=== PATIENT | female | born 1975 | race Caucasian/White ===

== ENCOUNTER → 2019-02-05 12:23 | Outpatient (RCR) | payer OTHER, SELFPAY ==
--- NOTE | 2018-01-30 14:30 | PT.OIE ---
Current Diagnoses Other chronic pain (01/30/18) Dorsalgia, unspecified (01/30/18) Muscle weakness (generalized) (01/30/18) Provider Visit Care Team Role Provider Type Roman Rene MD Attending Provider Non-Staff Family Provider Primary Care Provider Specialty: Internal Medicine Address: [place], [address] Email: Physical Therapy Initial Evaluation PT-OP-A Visit Information Start: 02/02/18 16:24 Freq: Status: Active Protocol: Document 01/30/18 14:30 RCC (Rec: 02/02/18 16:56 RCC [email or web address]) Out-Patient Physical Therapy Visit Information Visit Information Visit Type Initial Evaluation Visit Start Time 13:45 Visit Stop Time 14:30 Total Visit Minutes 45 Visit Number 1 Number of OXYGEN THERAPIST Visits 0 Evaluation Information Evaluation Date 01/30/18 PT-OP-B Current Condition Start: 02/02/18 16:24 Freq: Status: Active Protocol: Document 01/30/18 14:30 RCC (Rec: 02/02/18 16:56 RCC [email or web address]) Current Condition History of Current Condition Onset Date 2 yrs ago Current Complaints upper and lower back pain History of Current Condition Pt is a 42 y/o female presenting to physical therapy with a c/o chronic upper and lower back pain, with worsening symptoms over the past year. Initially, pt had a possible displaced rib with sternal and upper back pain 2 years ago, which helped with chiropractic treatment. However, pain has worsened over the past year and has tried chiropractic again which has held no long-term results . 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 Pain is worse at night, which interrupts her sleep tremendously, unable to sleep on her back or sides for very long. Pain also early in the morning remains until she gets moving about her day. She feels overall weakness in her core, and is interested in getting exercises to assist with stabilization to hopefully help decrease her pain. Treatment Goals Patient/Caregiver Goals improve strength, decrease pain. Be on a normal workout regimen again. Prior Functional Status Baseline Function- ADL's Independent Baseline Function- Mobility Independent Baseline Function- Gait no issues Baseline Function- Recreation/Hobbies exercising 3-4 days per week, pilates. Current Functional Impairments (Reported) Functional Limitations- Recreation/ increased pain with pilates Hobbies and exercise overall. PT-OP-C Subjective Start: 02/02/18 16:24 Freq: Status: Active Protocol: Document 01/30/18 14:30 RCC (Rec: 02/02/18 16:56 RCC [email or web address]) Patient Questionnaires Oswestry Low Back Index Oswestry Score 20 OP-PT Pain Assessment Location Lower Back Intensity 2 Scale Used Numeric (1 - 10) Frequency Occasional Upper Back Intensity 6 Scale Used Numeric (1 - 10) Description Aching Description- Other when sleeping and early a.m. PT-OP-F Manual Assessment Start: 02/02/18 16:24 Freq: Status: Active Protocol: Document 01/30/18 14:30 RCC (Rec: 02/02/18 16:56 RCC [email or web address]) Manual Assessments Soft Tissue Assessment Soft Tissue Mobility Assessment (2) tenderness to palpation: bilateral rhomboids, upper trapezius, latissimus dorsi, parascapular mm, lumbosacral multifidi and ES. Joint Mobility Assessment Joint Mobility Assessment hypermobility @ L3-5, hypomobile in the thoracic spine. PT-OP-H Neuro Start: 02/02/18 16:24 Freq: Status: Active Protocol: Document 01/30/18 14:30 RCC (Rec: 02/02/18 16:56 RCC [email or web address]) Deep Tendon Reflex & Clonus Assessment Deep Tendon Reflex Bilateral Patellar Deep Tendon Reflex 1+ Diminished Bilateral Achilles Deep Tendon Reflex 1+ Diminished PT-OP-J Posture/Palpation/Skin Start: 02/02/18 16:24 Freq: Status: Active Protocol: Document 01/30/18 14:30 RCC (Rec: 02/02/18 16:56 RCC [email or web address]) Posture Evaluation Position Sitting Evaluation View Lateral Head/C-Spine Posture Forward Head T-Spine Posture Increased Kyphosis Shoulder Posture (L) Rounded (R) Rounded Scapula Posture (L) Protracted (R) Protracted Pelvis Posture Anteriorly Tilted Knee Posture (L) Genu Recurvatum (R) Genu Recurvatum PT-OP-K Range of Motion Start: 02/02/18 16:24 Freq: Status: Active Protocol: Document 01/30/18 14:30 RCC (Rec: 02/02/18 16:56 [facility] [email or web address]) Lumbar Spine Range of Motion Lumbar Spine Active Degrees Testing Position standing Flexion 110 Extension 30 Comments SB 2 greater to the L than the R, with tension on contralateral side. Shoulder Goniometric Range of Motion Shoulder Measured in Degrees Right Active Shoulder ROM WFL Yes Left Active Shoulder ROM WFL Yes PT-OP-L Special Tests Start: 02/02/18 16:24 Freq: Status: Active Protocol: Document 01/30/18 14:30 RCC (Rec: 02/02/18 16:56 [facility] [email or web address]) Special Tests Lumbar Spine Special Tests Vertical Spine Loading Test Results negative Straight Leg Raise Test Results negative bilateral Slump Test Results positive bilateral Comments sciatic Prone Instability Test Test Results positive L3, L4, L5 PT-OP-M Strength Start: 02/02/18 16:24 Freq: Status: Active Protocol: Document 01/30/18 14:30 RCC (Rec: 02/02/18 16:56 [facility] [email or web address]) Hip Strength Hip Manual Muscle Testing Right Flexion (L2) 4 Good Abduction 4 Good Adduction 5 Normal External Rotation 4- Good- Internal Rotation 3+ Fair+ Left Flexion (L2) 4+ Good+ Abduction 4 Good Adduction 5 Normal External Rotation 4- Good- Internal Rotation 4- Good- Knee Strength Knee Manual Muscle Testing Right Flexion (S2) 5 Normal Extension (L3) 5 Normal Left Flexion (S2) 4+ Good+ Extension (L3) 5 Normal PT-OP-Q Treatments Start: 02/02/18 16:24 Freq: Status: Active Protocol: Document 01/30/18 14:30 RCC (Rec: 02/02/18 16:56 [facility] [email or web address]) Therapeutic Exercises Supine Exercises 1 Supine Exercise Name transverse abdominal activation Side bilateral Reps/Minutes 10 each Comments static and short walk outs Other Exercises 2 Other Exercise Name child's pose and bias to each side Side bilateral 1 Other Exercise Name quadruped alternating LE lift Side bilateral Reps/Minutes 10 PT-OP-T Assessment and Plan Start: 02/02/18 16:24 Freq: Status: Active Protocol: Document 01/30/18 14:30 RCC (Rec: 02/02/18 16:56 [facility] [email or web address]) Physical Therapy Assessment Rehab Potential Rehabilitation Potential Good Evaluation Complexity Number of Personal Factors/Comorbidities 1-2 Number of Body Systems Impaired 4 or More Clinical Presentation at Evaluation Evolving Impairments Impairments Activity Tolerance Pain Posture ROM Soft Tissue Mobility Strength Other Concerns Barriers to Rehabilitation chronicity of condition (2+ years) Goals Three Impairment LE weakness Short Term Goal (STG) 4+/5 or greater MMT to bilateral LEs STG Duration 6 weeks Jail Goal (LTG) 5/5 MMT to bilateral LEs. LTG Duration 10 weeks Two Impairment Modified Oswestry Jail Goal (LTG) 10% or less for disability score to improve function with daily activities LTG Duration 10 weeks One Impairment pain 2/10 low back and 6/10 upper back Psychiatric Clinician Goal (LTG) 0/10 low back pain and 3/10 upper back pain to assist with sleeping tolerance. LTG Duration 10 weeks Assessment Summary Assessment Pt appears to have lumbar hypermobility at levels L3-L5, along with hypomobile thoracic spine leading due impaired body mechanics with ROM, poor posture, and decreased core stabilization. Pt would greatly benefit from skilled physical therapy to improve core and spine stabilization and progressing her HEP to assess tolerance to activities without progressively worsening her symptoms, as well as education and performance of proper standing and sitting posture, body mechanics, and sleeping positioning to assist with improved healing and normalization of pain. Due to pt's condition being chronic, it is expected that prolonged time for improvements is necessary, likely at least 2-3 months with progression of activity under supervision of skilled physical therapists. Physical Therapy Plan Frequency and Duration Frequency of Treatment 2x/Week Duration of Treatment 10 weeks Plan of Care Start Date 01/30/18 Plan of Care End Date 04/10/18 Therapeutic Interventions Therapeutic Interventions Aquatic Therapy Home Exercise Program Joint Mobilizations Manual Therapy Neuromuscular Re-education Patient/Caregiver Education Self-Care/Home Management Soft Tissue Mobilization Taping Therapeutic Activities Therapeutic Exercises Modalities Cold Pack/Ice Massage Electric Stimulation Hot Packs Ultrasound Next Visit Focus/Plan Next Note Type Treatment Note Next Visit Plan progress core stabilization as tolerated, modalities for pain (hot pack, E-stim, US), scapular stabilization and posture re-education.
--- NOTE | 2018-04-09 16:11 | PT.OPDS ---
Current Diagnoses Other chronic pain (01/30/18) Dorsalgia, unspecified (01/30/18) Muscle weakness (generalized) (01/30/18) Provider Visit Care Team Role Provider Type Roman Rene MD Attending Provider Non-Staff Family Provider Primary Care Provider Specialty: Internal Medicine Address: [place], [address] Email: Visit Number Visit Number 1 Discharge Summary PT-OP-B Current Condition Start: 02/02/18 16:24 Freq: Status: Active Protocol: Document 01/30/18 14:30 RCC (Rec: 02/02/18 16:56 RCC [email or web address]) Current Condition History of Current Condition Onset Date 2 yrs ago Current Complaints upper and lower back pain History of Current Condition Pt is a 42 y/o female presenting to physical therapy with a c/o chronic upper and lower back pain, with worsening symptoms over the past year. Initially, pt had a possible displaced rib with sternal and upper back pain 2 years ago, which helped with chiropractic treatment. However, pain has worsened over the past year and has tried chiropractic again which has held no long-term results . 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 Pain is worse at night, which interrupts her sleep tremendously, unable to sleep on her back or sides for very long. Pain also early in the morning remains until she gets moving about her day. She feels overall weakness in her core, and is interested in getting exercises to assist with stabilization to hopefully help decrease her pain. Treatment Goals Patient/Caregiver Goals improve strength, decrease pain. Be on a normal workout regimen again. Prior Functional Status Baseline Function- ADL's Independent Baseline Function- Mobility Independent Baseline Function- Gait no issues Baseline Function- Recreation/Hobbies exercising 3-4 days per week, pilates. Current Functional Impairments (Reported) Functional Limitations- Recreation/ increased pain with pilates Hobbies and exercise overall. PT-OP-C Subjective Start: 02/02/18 16:24 Freq: Status: Active Protocol: Document 04/09/18 16:07 RCC (Rec: 04/09/18 16:11 RCC [email or web address]) OP-PT Subjective Patient Comments Patient Comments pt called into the clinic, requested to cancel all appointments at this time. PT-OP-F Manual Assessment Start: 02/02/18 16:24 Freq: Status: Active Protocol: Document 01/30/18 14:30 RCC (Rec: 02/02/18 16:56 RCC [email or web address]) Manual Assessments Soft Tissue Assessment Soft Tissue Mobility Assessment (2) tenderness to palpation: bilateral rhomboids, upper trapezius, latissimus dorsi, parascapular mm, lumbosacral multifidi and ES. Joint Mobility Assessment Joint Mobility Assessment hypermobility @ L3-5, hypomobile in the thoracic spine. PT-OP-H Neuro Start: 02/02/18 16:24 Freq: Status: Active Protocol: Document 01/30/18 14:30 RCC (Rec: 02/02/18 16:56 [facility] [email or web address]) Deep Tendon Reflex & Clonus Assessment Deep Tendon Reflex Bilateral Patellar Deep Tendon Reflex 1+ Diminished Bilateral Achilles Deep Tendon Reflex 1+ Diminished PT-OP-J Posture/Palpation/Skin Start: 02/02/18 16:24 Freq: Status: Active Protocol: Document 01/30/18 14:30 RCC (Rec: 02/02/18 16:56 [facility] [email or web address]) Posture Evaluation Position Sitting Evaluation View Lateral Head/C-Spine Posture Forward Head T-Spine Posture Increased Kyphosis Shoulder Posture (L) Rounded (R) Rounded Scapula Posture (L) Protracted (R) Protracted Pelvis Posture Anteriorly Tilted Knee Posture (L) Genu Recurvatum (R) Genu Recurvatum PT-OP-K Range of Motion Start: 02/02/18 16:24 Freq: Status: Active Protocol: Document 01/30/18 14:30 RCC (Rec: 02/02/18 16:56 [facility] [email or web address]) Lumbar Spine Range of Motion Lumbar Spine Active Degrees Testing Position standing Flexion 110 Extension 30 Comments SB 2 greater to the L than the R, with tension on contralateral side. Shoulder Goniometric Range of Motion Shoulder Measured in Degrees Right Active Shoulder ROM WFL Yes Left Active Shoulder ROM WFL Yes PT-OP-L Special Tests Start: 02/02/18 16:24 Freq: Status: Active Protocol: Document 01/30/18 14:30 RCC (Rec: 02/02/18 16:56 [facility] [email or web address]) Special Tests Lumbar Spine Special Tests Vertical Spine Loading Test Results negative Straight Leg Raise Test Results negative bilateral Slump Test Results positive bilateral Comments sciatic Prone Instability Test Test Results positive L3, L4, L5 PT-OP-M Strength Start: 02/02/18 16:24 Freq: Status: Active Protocol: Document 01/30/18 14:30 [facility] (Rec: 02/02/18 16:56 RCC [email or web address]) Hip Strength Hip Manual Muscle Testing Right Flexion (L2) 4 Good Abduction 4 Good Adduction 5 Normal External Rotation 4- Good- Internal Rotation 3+ Fair+ Left Flexion (L2) 4+ Good+ Abduction 4 Good Adduction 5 Normal External Rotation 4- Good- Internal Rotation 4- Good- Knee Strength Knee Manual Muscle Testing Right Flexion (S2) 5 Normal Extension (L3) 5 Normal Left Flexion (S2) 4+ Good+ Extension (L3) 5 Normal PT-OP-T Assessment and Plan Start: 02/02/18 16:24 Freq: Status: Active Protocol: Document 04/09/18 16:07 [facility] (Rec: 04/09/18 16:11 [facility] [email or web address]) Physical Therapy Assessment Progress Towards Goals Progress Comments unable to re-assess objective measures, goals as pt did not attend PT beyond initial evaluation. Assessment Summary Assessment Pt was evaluated on 01/30/18 and was given a HEP. Pt called and cancelled her remaining appointments, requesting discharge several weeks later. Pt will be discharged at this time due to pt request, she only attended the initial evaluation only. Physical Therapy Plan Discharge Physical Therapy Discharge Reasons Patient Request Discharge Comments only attended initial evaluation.
== END | disposition home or self-care (01) ==
LOC: PHYS 01-30 13:16
PROVIDERS: Family Provider Internal Medicine; PCP Internal Medicine; Visit Provider Internal Medicine
DX: M54.9 Dorsalgia, unspecified (principal); G89.29 Other chronic pain; M62.81 Muscle weakness (generalized)
CPT/HCPCS: 97162

== ENCOUNTER 2019-03-27 09:00 | Outpatient (RCR) | payer OTHER, SELFPAY ==
--- NOTE | 2019-03-20 12:27 | PT.OIE ---
Current Diagnoses Other specified disorders of muscle (03/20/19) Cystocele, unspecified (03/20/19) Rectocele (03/20/19) Visit Care Team Role Provider Type Roman Rene MD Family Provider Non-Staff Primary Care Provider Specialty: Internal Medicine Address: [address] [place], [address] Email: Minoo Jones MD Attending Provider Physician Specialty: [employer] Address: [address] [place] [address], [id number] Email: [email or web address] Physical Therapy Initial Evaluation PT-OP-A Visit Information Start: 03/20/19 07:35 Freq: Status: Active Protocol: Document 03/20/19 09:00 AMB (Rec: 03/20/19 10:50 AMB [email or web address]) Out-Patient Physical Therapy Visit Information Visit Information Visit Type Initial Evaluation Visit Start Time 09:00 Visit Stop Time 09:45 Total Visit Minutes 45 Visit Number 45 PT-OP-B Current Condition Start: 03/20/19 07:35 Freq: Status: Active Protocol: Document 03/20/19 09:00 AMB (Rec: 03/20/19 10:50 AMB [email or web address]) Current Condition History of Current Condition Onset Date 1-2 years ago Current Complaints prolapse History of Current Condition Shahrzad noticed some prolapse after the of her second child, but it has significantly worsened over the last couple years. She does have some constipation issues and thinks that that worsened things. She did have 2 vaginal deliveries, the first she had tearing up by her urethra. She does have some stress incontinence since the of her children, small leaks with cough sneeze, but is not as concerned about this as her prolapse. Treatment Goals Patient/Caregiver Goals Reduce prolapse to reduce pelvic heaviness Prior Functional Status Baseline Function- ADL's Independent Baseline Function- Mobility Independent Current Functional Impairments (Reported) Functional Limitations- ADL's difficulty with bowel movements, soft stools but difficulty fully evacuating, denies difficulty voiding urine Personal Factors Other Personal Factors That May Effect Back pain, shoulder pain, Therapy/Recovery wrist pain PT-OP-C Subjective Start: 03/20/19 07:35 Freq: Status: Active Protocol: Document 03/20/19 09:00 AMB (Rec: 03/20/19 10:50 AMB [email or web address]) Patient Questionnaires Pelvic Pain and Urgency/Frequency Patient Symptom Scale Pelvic Pain Score 11 PT-OP-I Pelvic Floor Start: 03/20/19 07:35 Freq: Status: Active Protocol: Document 03/20/19 09:00 AMB (Rec: 03/20/19 11:18 AMB [email or web address]) Pelvic Floor Assessment Urine Pelvic Floor Surgery tubal ligation, uterine ablation Urinary Symptoms Prolapse,Falling Out Feeling/ Heavy Leakage Size Small Leakage Cause Cough,Exercise,Lifting,Sneeze Voiding Frequency 10 Nocturia 2 Bowel Bowel Surgery No Bowel Symptoms Constipation Other Bowel Symptoms difficulty with full evacuation, bowel size is soft , but skinny [place] Stool Chart Type 1-7 4 Pelvic Clock Pelvic Clock Other no tenderness with palpation, but pt does feel discomfort from rectocele because she feels it is pushing out when she is sitting Prolapse Cystocele Grade 2 Urethrocele Grade 2 Prolapse Comments at rest, level of hymen, with valsalva rectocele 1cm from introitus, less so cystocele Perineal Descent Resting Present Bearing Present Contraction Ability Voluntary Contraction Weak Voluntary Relaxation Weak Manual Muscle Testing Left 1 Manual Muscle Testing Right 1 Manual Muscle Testing Anterior 1 Manual Muscle Testing Posterior 2 Muscle Endurance (Seconds) 4 Number of Quick Contractions In 10 6 Seconds PT-OP-T Assessment and Plan Start: 03/20/19 07:35 Freq: Status: Active Protocol: Document 03/20/19 09:00 AMB (Rec: 03/20/19 11:18 AMB [email or web address]) Physical Therapy Assessment Rehab Potential Rehabilitation Potential Good Evaluation Complexity Number of Personal Factors/Comorbidities 1-2 Number of Body Systems Impaired 1-2 Clinical Presentation at Evaluation Stable Impairments Impairments Functional Activities,Strength Goals Three Impairment HEP Short Term Goal (STG) Shahrzad will be independent and consistent with a HEP to strengthen her pelvic floor. STG Duration 4 weeks Two Impairment continence Group Home Goal (LTG) Shahrzad will sneeze without leaking urine. LTG Duration 8 weeks One Impairment prolapse Group Home Goal (LTG) Shahrzad will show decreased symptoms of prolapse so that she can have a bowel movement without worsening feeling of falling out. LTG Duration 8 weeks Assessment Summary Assessment Shahrzad attends physical therapy with history of cystocele and rectocele and stress incontinence. She is mostly concerned with the prolapse. She has tried to do Kegel's in the past. She presents with poor pelvic floor strength, especially anteriorly. She will benefit from PT to help her strengthen her pelvic floor to reduce her symptoms of prolapse especially with bowel movements. Physical Therapy Plan Frequency and Duration Frequency of Treatment 1x/Week Duration of Treatment 8 weeks Plan of Care Start Date 03/20/19 Plan of Care End Date 05/15/19 Therapeutic Interventions Therapeutic Interventions Gait Training,Home Exercise Program,Manual Therapy, Neuromuscular Re-education, Self-Care/Home Management, Therapeutic Activities, Therapeutic Exercises Modalities Biofeedback,Electric Stimulation Next Visit Focus/Plan Next Note Type Treatment Note Next Visit Plan start with NMES and biofeedback, progress as tolerated into more functional postures
--- NOTE | 2019-03-20 12:28 | PT.OPPOC ---
Current Diagnoses Other specified disorders of muscle (03/20/19) Cystocele, unspecified (03/20/19) Rectocele (03/20/19) Visit Care Team Role Provider Type Roman Rene MD Family Provider Non-Staff Primary Care Provider Specialty: Internal Medicine Address: [place], [address] Email: Minoo Jones MD Attending Provider Physician Specialty: [employer] Address: [address] [place] [address], [id number] Email: [email or web address] Plan Of Care PT-OP-T Assessment and Plan Start: 03/20/19 07:35 Freq: Status: Active Protocol: Document 03/20/19 09:00 AMB (Rec: 03/20/19 11:18 AMB [email or web address]) Physical Therapy Assessment Rehab Potential Rehabilitation Potential Good Evaluation Complexity Number of Personal Factors/Comorbidities 1-2 Number of Body Systems Impaired 1-2 Clinical Presentation at Evaluation Stable Impairments Impairments Functional Activities,Strength Goals Three Impairment HEP Short Term Goal (STG) Shahrzad will be independent and consistent with a HEP to strengthen her pelvic floor. STG Duration 4 weeks Two Impairment continence Jail Goal (LTG) Shahrzad will sneeze without leaking urine. LTG Duration 8 weeks One Impairment prolapse Jail Goal (LTG) Shahrzad will show decreased symptoms of prolapse so that she can have a bowel movement without worsening feeling of falling out. LTG Duration 8 weeks Assessment Summary Assessment Shahrzad attends physical therapy with history of cystocele and rectocele and stress incontinence. She is mostly concerned with the prolapse. She has tried to do Kegel's in the past. She presents with poor pelvic floor strength, especially anteriorly. She will benefit from PT to help her strengthen her pelvic floor to reduce her symptoms of prolapse especially with bowel movements. Physical Therapy Plan Frequency and Duration Frequency of Treatment 1x/Week Duration of Treatment 8 weeks Plan of Care Start Date 03/20/19 Plan of Care End Date 05/15/19 Therapeutic Interventions Therapeutic Interventions Gait Training,Home Exercise Program,Manual Therapy, Neuromuscular Re-education, Self-Care/Home Management, Therapeutic Activities, Therapeutic Exercises Modalities Biofeedback,Electric Stimulation Next Visit Focus/Plan Next Note Type Treatment Note Next Visit Plan start with NMES and biofeedback, progress as tolerated into more functional postures Plan of Care Dates Plan of Care Start Date 03/20/19 Plan of Care End Date 05/15/19
--- NOTE | 2019-03-27 11:10 | PT.OTN ---
Current Diagnoses Other specified disorders of muscle (03/27/19) Cystocele, unspecified (03/27/19) Rectocele (03/27/19) Physical Therapy Treatment Note PT-OP-A Visit Information Start: 03/20/19 07:35 Freq: Status: Active Protocol: Document 03/27/19 09:00 AMB (Rec: 03/27/19 11:10 AMB [email or web address]) Out-Patient Physical Therapy Visit Information Visit Information Visit Type Treatment Note Visit Start Time 09:00 Visit Stop Time 09:45 Total Visit Minutes 45 Visit Number 2 PT-OP-B Current Condition Start: 03/20/19 07:35 Freq: Status: Active Protocol: Document 03/20/19 09:00 AMB (Rec: 03/20/19 10:50 AMB [email or web address]) Current Condition History of Current Condition Onset Date 1-2 years ago Current Complaints prolapse History of Current Condition Shahrzad noticed some prolapse after the of her second child, but it has significantly worsened over the last couple years. She does have some constipation issues and thinks that that worsened things. She did have 2 vaginal deliveries, the first she had tearing up by her urethra. She does have some stress incontinence since the of her children, small leaks with cough sneeze, but is not as concerned about this as her prolapse. Treatment Goals Patient/Caregiver Goals Reduce prolapse to reduce pelvic heaviness Prior Functional Status Baseline Function- ADL's Independent Baseline Function- Mobility Independent Current Functional Impairments (Reported) Functional Limitations- ADL's difficulty with bowel movements, soft stools but difficulty fully evacuating, denies difficulty voiding urine Personal Factors Other Personal Factors That May Effect Back pain, shoulder pain, Therapy/Recovery wrist pain PT-OP-C Subjective Start: 03/20/19 07:35 Freq: Status: Active Protocol: Document 03/27/19 09:00 AMB (Rec: 03/27/19 11:10 AMB [email or web address]) OP-PT Subjective Patient Comments Patient Comments Pt feels like the legs up while lying down is much more successful for her, but it's hard to make time to get into that position. PT-OP-I Pelvic Floor Start: 03/20/19 07:35 Freq: Status: Active Protocol: Document 03/20/19 09:00 AMB (Rec: 03/20/19 11:18 AMB [email or web address]) Pelvic Floor Assessment Urine Pelvic Floor Surgery tubal ligation, uterine ablation Urinary Symptoms Prolapse,Falling Out Feeling/ Heavy Leakage Size Small Leakage Cause Cough,Exercise,Lifting,Sneeze Voiding Frequency 10 Nocturia 2 Bowel Bowel Surgery No Bowel Symptoms Constipation Other Bowel Symptoms difficulty with full evacuation, bowel size is soft , but skinny [place] Stool Chart Type 1-7 4 Pelvic Clock Pelvic Clock Other no tenderness with palpation, but pt does feel discomfort from rectocele because she feels it is pushing out when she is sitting Prolapse Cystocele Grade 2 Urethrocele Grade 2 Prolapse Comments at rest, level of hymen, with valsalva rectocele 1cm from introitus, less so cystocele Perineal Descent Resting Present Bearing Present Contraction Ability Voluntary Contraction Weak Voluntary Relaxation Weak Manual Muscle Testing Left 1 Manual Muscle Testing Right 1 Manual Muscle Testing Anterior 1 Manual Muscle Testing Posterior 2 Muscle Endurance (Seconds) 4 Number of Quick Contractions In 10 6 Seconds PT-OP-Q Treatments Start: 03/20/19 07:35 Freq: Status: Active Protocol: Document 03/27/19 09:00 AMB (Rec: 03/27/19 11:10 AMB [email or web address]) Therapeutic Exercises Supine Exercises 2 Supine Exercise Name roll out/ roll in Resistance #2 band Reps/Minutes 10, 5 hold 1 Supine Exercise Name hooklying on wedge Comments long hold vs quick flick Neuro Re-Education Treatment Other Activities 1 Details sEMG Comments baseline 1.5, avg 6, max 11- difficulty holding longer holds PT-OP-T Assessment and Plan Start: 03/20/19 07:35 Freq: Status: Active Protocol: Document 03/27/19 09:00 AMB (Rec: 03/27/19 11:10 AMB [email or web address]) Physical Therapy Assessment Assessment Summary Assessment Encourage Shahrzad to avoid sit ups and jumping jacks for now. Challenged with roll in roll out exercises, but is doable with pelvis elevated. Physical Therapy Plan Next Visit Focus/Plan Next Note Type Treatment Note Next Visit Plan start with NMES and biofeedback, progress as tolerated into more functional postures
--- NOTE | 2019-04-20 07:41 | PT.OPDS ---
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 She does have some constipation issues and thinks that that worsened things. She did have 2 vaginal deliveries, the first she had tearing up by her urethra. She does have some stress incontinence since the of her children, small leaks with cough sneeze, but is not as concerned about this as her prolapse. Treatment Goals Patient/Caregiver Goals Reduce prolapse to reduce pelvic heaviness Prior Functional Status Baseline Function- ADL's Independent Baseline Function- Mobility Independent Current Functional Impairments (Reported) Functional Limitations- ADL's difficulty with bowel movements, soft stools but difficulty fully evacuating, denies difficulty voiding urine Personal Factors Other Personal Factors That May Effect Back pain, shoulder pain, Therapy/Recovery wrist pain PT-OP-C Subjective Start: 03/20/19 07:35 Freq: Status: Active Protocol: Document 03/27/19 09:00 AMB (Rec: 03/27/19 11:10 AMB [email or web address]) OP-PT Subjective Patient Comments Patient Comments Pt feels like the legs up while lying down is much more successful for her, but it's hard to make time to get into that position. PT-OP-I Pelvic Floor Start: 03/20/19 07:35 Freq: Status: Active Protocol: Document 03/20/19 09:00 AMB (Rec: 03/20/19 11:18 AMB [email or web address]) Pelvic Floor Assessment Urine Pelvic Floor Surgery tubal ligation, uterine ablation Urinary Symptoms Prolapse,Falling Out Feeling/ Heavy Leakage Size Small Leakage Cause Cough,Exercise,Lifting,Sneeze Voiding Frequency 10 Nocturia 2 Bowel Bowel Surgery No Bowel Symptoms Constipation Other Bowel Symptoms difficulty with full evacuation, bowel size is soft , but skinny [place] Stool Chart Type 1-7 4 Pelvic Clock Pelvic Clock Other no tenderness with palpation, but pt does feel discomfort from rectocele because she feels it is pushing out when she is sitting Prolapse Cystocele Grade 2 Urethrocele Grade 2 Prolapse Comments at rest, level of hymen, with valsalva rectocele 1cm from introitus, less so cystocele Perineal Descent Resting Present Bearing Present Contraction Ability Voluntary Contraction Weak Voluntary Relaxation Weak Manual Muscle Testing Left 1 Manual Muscle Testing Right 1 Manual Muscle Testing Anterior 1 Manual Muscle Testing Posterior 2 Muscle Endurance (Seconds) 4 Number of Quick Contractions In 10 6 Seconds PT-OP-T Assessment and Plan Start: 03/20/19 07:35 Freq: Status: Active Protocol: Document 04/20/19 07:39 AMB (Rec: 04/20/19 07:41 AMB [email or web address]) Physical Therapy Assessment Goals Three Impairment HEP Short Term Goal (STG) Shahrzad will be independent and consistent with a HEP to strengthen her pelvic floor. STG Duration 4 weeks Two Impairment continence Transportation Program Director Goal (LTG) Shahrzad will sneeze without leaking urine. LTG Duration 8 weeks Assessment Summary Assessment Shahrzad called the clinic to cancel her remaining appointments due to a high copay. She has been instructed in a basic home exercise program, but we had not gotten into many challenging exercises, as she had only attended 2 appointments. She is discharged now per her request . Physical Therapy Plan Discharge Physical Therapy Discharge Reasons Patient Request Discharge Comments High copay
== END 2019-04-24 10:18 ==
LOC: PHYS 09:00
PROVIDERS: Family Provider Internal Medicine; PCP Internal Medicine; Visit Provider Specialist
DX: N81.10 Cystocele, unspecified (principal); N81.6 Rectocele; M62.89 Other specified disorders of muscle
CPT/HCPCS: 97110; 97112; 97161

== ENCOUNTER → 2021-10-19 10:56 | Outpatient (CLI) | payer OTHER, SELFPAY ==
[2021-10-19 11:58] LABS: Influenza A - CEPHEID Flu A NEGATIVE (NEGATIVE); Influenza B - CEPHEID Flu B NEGATIVE (NEGATIVE)
[2021-10-19 11:59] LABS: COVID-19 CEPHEID PCR (VTM/NP) Negative (Negative)
== END ==
PROVIDERS: Family Provider Internal Medicine; PCP Internal Medicine; Visit Provider Physician Assistant
DX: Z20.822 Contact with and (suspected) exposure to COVID-19 (principal); R05.9 Cough, unspecified
CPT/HCPCS: 0240U

== ENCOUNTER → 2021-11-29 17:00 | Outpatient (CLI) | payer OTHER, SELFPAY ==
[2021-11-29 18:25] LABS: Follicle Stimulating Hormone 5.88 mIU/mL
[2021-11-29 18:41] LABS: Estradiol, Total 108.7 pg/mL
[2021-11-29 19:10] LABS: TSH w/ Reflex to FT4 2.85 uIU/mL (0.47-4.68)
[2021-12-03 16:08] LABS: Percent Free Testosterone 1.19 % (0.50-2.80); Testosterone Free 0.32 ng/dL (0.10-0.85); Testosterone Total 26.5 ng/dL (.)
== END ==
PROVIDERS: Family Provider Internal Medicine; PCP Internal Medicine; Referring Provider Obstetrics & Gynecology; Visit Provider Obstetrics & Gynecology
DX: R68.82 Decreased libido (principal); R53.83 Other fatigue
CPT/HCPCS: 36415; 82670; 83001; 84402; 84403; 84443

== ENCOUNTER → 2023-09-06 10:17 | Outpatient (CLI) | payer OTHER, SELFPAY ==
[2023-09-06 11:02] LABS: Appearance Urine UA CLEAR; Bilirubin Urine UA NEGATIVE (NEGATIVE); Color Urine UA YELLOW; Glucose Urine UA NEGATIVE (Negative); Ketones Urine UA NEGATIVE (NEGATIVE); Leukocyte Esterase Urine UA NEGATIVE (NEGATIVE); Nitrite Urine UA NEGATIVE (Negative); Occult Blood Urine UA NEGATIVE (Negative); Protein Urine UA NEGATIVE (Negative); Urobilinogen Urine UA 0.2 E.U./dL (0.2)
[2023-09-06 11:05] LABS: Add Manual Diff / Slide Review NO; Basophils Absolute Auto 100 /uL (0-100); Basophils Percent Auto 0.7 % (0-2); Eosinophils Absolute Auto 0 /uL (0-450); Eosinophils Percent Auto 0.6 % (2-4); Hematocrit 39.4 % (36-46); Hemoglobin 13.7 g/dL (12.0-16.0); Lymphocytes Absolute Auto 1600 /uL (1100-4500); Lymphocytes Percent Auto 20.7 % (25-40); Mean Corpuscular HGB Conc 34.7 % (30-36); Mean Corpuscular Hemoglobin 29.8 PG (26-34); Mean Corpuscular Volume 85.8 fL (80-100); Monocytes Absolute Auto 700 /uL (0-900); Monocytes Percent Auto 8.6 % (3-14); Neutrophils Absolute Auto 5500 /uL (1500-7000); Neutrophils Percent Auto 69.4 % (50-75); Platelet Count 242 X10^3/uL (150-400); Red Blood Cell Count 4.59 X10^6/uL (4.0-5.2); Red Cell Distribution Width 12.9 % (11.6-14.8)
[2023-09-06 11:08] LABS: Hemoglobin A1C% w Est Avg Glu 5.5 % (4.0-6.0)
[2023-09-06 11:11] LABS: pH Urine UA 7.5 (4.5-8.0)
[2023-09-06 11:25] LABS: Alanine Aminotransferase 36 IU/L (<35); Albumin 4.4 g/dL (3.5-5.0); Albumin Globulin Ratio 1.4 (1.0-2.8); Alkaline Phosphatase 67 U/L (38-126); Aspartate Aminotransferase 29 IU/L (14-36); BUN Creatinine Ratio 21.3 (6-22); Bilirubin Total 0.6 mg/dL (0.2-1.3); Blood Urea Nitrogen 17 mg/dL (7-17); Calcium 9.5 mg/dL (8.4-10.2); Carbon Dioxide 26 mmol/L (22-32); Chloride 105 mmol/L (98-107); Cholesterol 245 mg/dL (140-199); Estimated Glomerular Filt Rate > 60 mL/min (>60); Globulin 3.1 g/dL (1.7-4.1); Glucose 104 mg/dL (70-100); HDL Cholesterol 47 mg/dL (40-60); HEMOLYSIS < 15 (0-50); Iron 80 ug/dL (37-170); LDL Cholesterol Calculated 150 mg/dL (<100); Potassium 3.8 mmol/L (3.4-5.1); Sodium 136 mmol/L (137-145); Total Protein 7.5 g/dL (6.3-8.2); Triglycerides 239 mg/dL (35-150)
[2023-09-06 11:29] LABS: Bacteria Urine None Seen; Culture Indicated Urine Cult Not Indicated; RBC Urine 0-1/HPF (0-5/HPF); Squamous Epithelial Cell Urine 0-1 /HPF (0-5/HPF); Urine Volume 10mL (spun); WBC Urine None Seen (0-5/HPF)
[2023-09-06 11:34] LABS: Total Iron Binding Capacity 314 ug/dL (265-497)
[2023-09-06 11:41] LABS: Vitamin D 25 Hydroxy (D3) 22.9 ng/mL (30.0-100.0)
[2023-09-06 11:58] LABS: TSH w/ Reflex to FT4 1.36 uIU/mL (0.47-4.68)
[2023-09-06 12:00] LABS: Ferritin 143 ng/mL (6-137)
[2023-09-06 12:31] LABS: Folate 11.9 ng/mL (2.76-20.0); Vitamin B12 977 pg/mL (239-931)
== END ==
LOC: LAB 10:20
PROVIDERS: Family Provider Internal Medicine; PCP Internal Medicine; Referring Provider Internal Medicine; Visit Provider Internal Medicine
DX: R53.83 Other fatigue (principal)
CPT/HCPCS: 36415; 80053; 80061; 81001; 82306; 82607; 82728; 82746; 83036; 83540; 83550; 84443; 85025